=== PATIENT | female | born 1960 | race Caucasian/White ===

== ENCOUNTER 2023-03-21 14:48 | Emergency (ER) | payer MEDICAID ==
[~2023-03-21] VITALS: Ht 154.9 cm; Wt 75.7 kg
[2023-03-21 14:51] VITALS: BP 149/81
--- NOTE | 2023-03-21 14:53 | NUR ---
PT AMBULATED TO ER BED 6
--- NOTE | 2023-03-21 15:00 | NUR ---
63YO FEMALE PT BIB DAUGHTER C/O PRESSURED 4/10 CHEST PAIN XTODAY. STATES SUDDEN ONSET W/O RADIATION. REPORTS EPISODES OF SOB, LETHARGY AND GEN WEAK. +DYSURIA, URGENCY AND INCREASED FREQUENCY. DENIES N/V/D,FEVER CHILLS OR SOB AT THIS TIME. PT AAOX4, ON ENAMEL BUFFER HX: ASTHMA, HLD, HTN NKA
--- NOTE | 2023-03-21 15:02 | NUR ---
MD MELARA AT BEDSIDE FOR EVALUATION
[2023-03-21] MEDS ORDERED: NITROGLYCERIN 0.4 MG TAB SL ONE (15:15)
[2023-03-21] MEDS ORDERED: NACL 0.9% 1,000 ML IV ONE (15:15)
--- NOTE | 2023-03-21 15:39 | NUR ---
xray at bedside
[2023-03-21 15:42] LABS: BASOPHILS # (AUTO) 0.1 K/uL (0.00-0.22); BASOPHILS % (AUTO) 0.6 % (0.0-2.0); EOSINOPHILS % (AUTO) 0.4 % (0.0-4.0); HEMATOCRIT 35.5 % (36-48); HEMOGLOBIN 11.8 g/dL (12.0-16.0); LYMPHOCYTES # (AUTO) 1.9 K/uL (2.5-16.5); LYMPHOCYTES % (AUTO) 21.7 % (20.5-51.1); MEAN CORPUSCULAR HEMOGLOBIN 29 pg (27-31); MEAN CORPUSCULAR HGB CONC 33 g/dL (33-37); MEAN CORPUSCULAR VOLUME 87.2 fL (80-94); MONOCYTES # (AUTO) 0.6 K/uL (0.8-1.0); MONOCYTES % (AUTO) 7.4 % (1.7-9.3); NEUTROPHILS # (AUTO) 6.1 K/uL (1.8-7.7); NEUTROPHILS % (AUTO) 69.9 % (42.2-75.2); PLATELET COUNT (AUTO) 203 K/uL (140-450); RED BLOOD CELL COUNT(AUTO) 4.07 MIL/uL (4.20-5.40); WHITE BLOOD COUNT (AUTO) 8.8 K/uL (4.8-10.8)
[2023-03-21 15:57] LABS: APPEARANCE,URINE CLEAR (CLEAR); BILIRUBIN,URINE NEGATIVE (NEGATIVE); BLOOD, URINE 3+ (NEGATIVE); COLOR,URINE YELLOW (YELLOW); LEUKOCYTE ESTERASE ,URINE NEGATIVE (NEGATIVE); NITRITE, URINE POSITIVE (NEGATIVE); PH,URINE 5.5 (5.0-9.0); UGLUCOSE NEGATIVE (NEGATIVE)
--- NOTE | 2023-03-21 16:01 | NUR ---
PT W/ INCREASED PELVIC PAIN. ERMD MADE AWARE
[2023-03-21] MEDS ORDERED: KETOROLAC 30 MG/ML VIAL IVP ONE (16:05)
[2023-03-21 16:10] LABS: ALBUMIN 3.6 g/dL (3.4-5.0); ANION GAP 12.2 (8-16); ASPARTATE AMINOTRANSFERASE 24 U/L (15-37); CARBON DIOXIDE 27.6 mmol/L (21-32); CHLORIDE 100 mmol/L (98-107); CREATININE 1.2 mg/dL (0.6-1.3); GFR ARICAN-AMERICAN 58 mL/min (>90); GLUCOSE 172 mg/dL (74-106); POTASSIUM 3.8 mmol/L (3.5-5.1); SODIUM SERUM 136 mmol/L (136-145); TOTAL BILIRUBIN 0.4 mg/dL (0.0-1.0); UREA NITROGEN, BLOOD 31 mg/dL (7-18)
[2023-03-21 16:12] LABS: RBC,URINE 20-50 /HPF (0-5); TRICHOMONAS,URINE None Seen /HPF (None Seen); WBC,URINE 0-5 /HPF (0-5); YEAST,URINE None Seen /HPF (None Seen)
[2023-03-21] MEDS ORDERED: ACET-10509 PO (16:47)
[2023-03-21] MEDS ORDERED: TRAM50TA3 PO (16:47)
--- NOTE | 2023-03-21 16:55 | NUR ---
IV removed, catheter intact and site benign. Applied folded 4x4 gauze and tape to stop bleeding.
--- NOTE | 2023-03-21 16:56 | NUR ---
The patient's care was reviewed and supervised by RICCI العلي RN.
[2023-03-21 17:01] VITALS: BP 111/68
--- NOTE | 2023-03-21 17:01 | NUR ---
Patient discharged with v/s stable. Written and verbal after care instructions FOR NON SPECIFIC CHEST PAIN AND COLPOCLEISIS given and explained. Patient alert, oriented and verbalized understanding of instructions. Ambulatory with steady gait. All questions addressed prior to discharge. ID band removed. Patient advised to follow up with PMD. Rx of TYLENOL AND TRAMADOL given. Opportunity to ask questions provided and answered.
== END 2023-03-21 17:01 | disposition home or self-care (01) ==
LOC: MED 14:48
DX: R07.9 Chest pain, unspecified (principal); F41.9 Anxiety disorder, unspecified; Z79.899 Other long term (current) drug therapy
CPT/HCPCS: 36415; 71045; 80053; 81001; 84484; 85025; 85379; 87086; 93005; 96361; 96374; 99285; J1885; J7030; Q0092

== ENCOUNTER 2023-04-16 20:37 | Emergency (ER) | payer MEDICAID ==
[~2023-04-16] VITALS: Ht 157.5 cm; Wt 80.3 kg
[~2023-04-16 20:37] MED LIST: ACET-10509 PO; TRAM50TA3 PO
[2023-04-16 21:15] VITALS: BP 123/82
--- NOTE | 2023-04-16 21:18 | NUR ---
TO LOBBY A/W BED AMBULATORY
--- NOTE | 2023-04-17 03:08 | NUR ---
PT CALLED FROM INSIDE LOBBY AND OUTSIDE, NO RESPONSE
--- NOTE | 2023-04-17 03:13 | NUR ---
PT CALLED IN LOBBY AND OUTSIDE WITH NO ANSWER. PT LWBS
== END 2023-04-17 03:05 | disposition left against medical advice (07) ==
LOC: MED 20:37
DX: M54.9 Dorsalgia, unspecified (principal); R07.9 Chest pain, unspecified; Z53.21 Procedure and treatment not carried out due to patient leaving prior to being seen by health care provider
CPT/HCPCS: 93005; 99281

== ENCOUNTER 2023-04-20 01:10 | Emergency (ER) | payer MEDICAID ==
[~2023-04-20] VITALS: Ht 154.9 cm; Wt 77.6 kg
[2023-04-20 01:30] VITALS: BP 144/101
[2023-04-20] MEDS ORDERED: cefTRIAXone 1,000 MG in LIDOCAINE MPF 1% 2.1 ML IM ONE (02:25)
[2023-04-20] MEDS ORDERED: KETOROLAC 60 MG/2 ML VIAL IM ONE (02:25)
[2023-04-20] MEDS ORDERED: cefTRIAXone 1,000 MG VIAL ONE (02:29)
[2023-04-20] MEDS ORDERED: LIDOCAINE MPF 1% 5 ML ONE (02:30)
[2023-04-20 02:55] LABS: APPEARANCE,URINE CLEAR (CLEAR); BILIRUBIN,URINE NEGATIVE (NEGATIVE); BLOOD, URINE NEGATIVE (NEGATIVE); COLOR,URINE YELLOW (YELLOW); LEUKOCYTE ESTERASE ,URINE NEGATIVE (NEGATIVE); NITRITE, URINE NEGATIVE (NEGATIVE); UGLUCOSE TRACE (NEGATIVE)
[2023-04-20] MEDS ORDERED: NACL 0.9% 1,000 ML IV ONE (03:25)
--- NOTE | 2023-04-20 03:29 | NUR ---
PT TO BED #9
--- NOTE | 2023-04-20 03:35 | NUR ---
Pt c/o lower abd pain xcouple days; states she feels the pain in her ovaries. Denies any hematuria, dysuria, N/V. PMH: HTN A: NKDA Daughter at bedside.
[2023-04-20 03:41] LABS: BASOPHILS # (AUTO) 0.1 K/uL (0.00-0.22); BASOPHILS % (AUTO) 0.5 % (0.0-2.0); EOSINOPHILS % (AUTO) 0.4 % (0.0-4.0); HEMATOCRIT 34.7 % (36-48); HEMOGLOBIN 11.5 g/dL (12.0-16.0); LYMPHOCYTES # (AUTO) 2.2 K/uL (2.5-16.5); LYMPHOCYTES % (AUTO) 22.5 % (20.5-51.1); MEAN CORPUSCULAR HEMOGLOBIN 29 pg (27-31); MEAN CORPUSCULAR HGB CONC 33 g/dL (33-37); MEAN CORPUSCULAR VOLUME 87.2 fL (80-94); MONOCYTES # (AUTO) 0.9 K/uL (0.8-1.0); MONOCYTES % (AUTO) 9.2 % (1.7-9.3); NEUTROPHILS # (AUTO) 6.7 K/uL (1.8-7.7); NEUTROPHILS % (AUTO) 67.4 % (42.2-75.2); PLATELET COUNT (AUTO) 190 K/uL (140-450); RED BLOOD CELL COUNT(AUTO) 3.98 MIL/uL (4.20-5.40); RED CELL DISTRIBUTION WIDTH 13.9 % (11.6-13.7); WHITE BLOOD COUNT (AUTO) 9.9 K/uL (4.8-10.8)
[2023-04-20 03:57] LABS: ALBUMIN 3.8 g/dL (3.4-5.0); ANION GAP 10.7 (8-16); CARBON DIOXIDE 31.2 mmol/L (21-32); CREATININE 1.5 mg/dL (0.6-1.3); POTASSIUM 3.9 mmol/L (3.5-5.1); TOTAL BILIRUBIN 0.3 mg/dL (0.0-1.0)
--- NOTE | 2023-04-20 05:20 | NUR ---
Pt taken to CT for imaging.
[2023-04-20] MEDS ORDERED: ACET-8905 PO (08:41)
[2023-04-20] MEDS ORDERED: IBUP-2213 PO (08:41)
[2023-04-20 08:55] VITALS: BP 131/77
--- NOTE | 2023-04-20 08:55 | NUR ---
Patient discharged with v/s stable. Written and verbal after care instructions given and explained. Patient alert, oriented and verbalized understanding of instructions. Ambulatory with steady gait. All questions addressed prior to discharge. ID band removed. Patient advised to follow up with PMD. Rx of NORCO, IBUPROFEN given. Patient educated on indication of medication including possible reaction and side effects. Opportunity to ask questions provided and answered.
== END 2023-04-20 08:55 | disposition home or self-care (01) ==
LOC: MED 01:10
DX: R10.30 Lower abdominal pain, unspecified (principal); I10 Essential (primary) hypertension; Z79.899 Other long term (current) drug therapy; Z79.891 Long term (current) use of opiate analgesic
CPT/HCPCS: 36415; 74176; 80053; 81003; 83605; 85025; 87040; 96360; 96372; 99285; J0696; J1885; J2001; J7030

== ENCOUNTER 2024-04-06 14:44 | Emergency (ER) | payer MEDICAID ==
[~2024-04-06] VITALS: Ht 157.5 cm; Wt 78.5 kg
[~2024-04-06 14:44] MED LIST changes: +ACET-8905 PO; +IBUP-2213 PO
[2024-04-06 15:01] VITALS: BP 141/108; PULSE 113; RESP 19; TEMP 97.9; O2SAT 96
[2024-04-06] MEDS: KETOROLAC 30 MG/ML VIAL IM ONE (15:38)
[2024-04-06] MEDS: LORazepam 1 MG TAB PO ONE (15:38)
[2024-04-06] MEDS: LIDOCAINE 5% 1 EA PATCH TP ONE (16:01)
[2024-04-06 16:11] LABS: BASOPHILS # (AUTO) 0.1 K/uL (0.00-0.22); BASOPHILS % (AUTO) 1.1 % (0.0-2.0); EOSINOPHILS # (AUTO) 0.1 K/uL (0-0.4); HEMATOCRIT 35.6 % (36-48); HEMOGLOBIN 11.8 g/dL (12.0-16.0); LYMPHOCYTES # (AUTO) 2.8 K/uL (2.5-16.5); LYMPHOCYTES % (AUTO) 38.9 % (20.5-51.1); MEAN CORPUSCULAR HEMOGLOBIN 28 pg (27-31); MEAN CORPUSCULAR HGB CONC 33 g/dL (33-37); MEAN CORPUSCULAR VOLUME 85.5 fL (80-94); MONOCYTES # (AUTO) 0.5 K/uL (0.8-1.0); MONOCYTES % (AUTO) 6.9 % (1.7-9.3); NEUTROPHILS # (AUTO) 3.7 K/uL (1.8-7.7); NEUTROPHILS % (AUTO) 52.1 % (42.2-75.2); PLATELET COUNT (AUTO) 204 K/uL (140-450); RED BLOOD CELL COUNT(AUTO) 4.16 MIL/uL (4.20-5.40); RED CELL DISTRIBUTION WIDTH 14.1 % (11.6-13.7); WHITE BLOOD COUNT (AUTO) 7.2 K/uL (4.8-10.8)
[2024-04-06 16:28] LABS: ANION GAP 10.2 (8-16); CALCIUM 9.3 mg/dL (8.5-10.1); CARBON DIOXIDE 30.7 mmol/L (21-32); CREATININE 1.3 mg/dL (0.6-1.3); POTASSIUM 3.9 mmol/L (3.5-5.1)
[2024-04-06] MEDS ORDERED: ATI.5 PO (16:50)
[2024-04-06] MEDS: ALBUTEROL 0.083% 2.5 MG/3 ML NEBU INH ONE (17:12)
[2024-04-06 17:13] VITALS: PULSE 67; RESP 14; O2SAT 93
[2024-04-06 17:20] VITALS: BP 141/108; PULSE 67; RESP 14; TEMP 97.9; O2SAT 93
== END 2024-04-06 17:20 | disposition home or self-care (01) ==
LOC: MED 14:44
DX: R07.89 Other chest pain (principal); F41.9 Anxiety disorder, unspecified; K21.9 Gastro-esophageal reflux disease without esophagitis; E11.9 Type 2 diabetes mellitus without complications; I10 Essential (primary) hypertension; Z79.4 Long term (current) use of insulin; Z79.899 Other long term (current) drug therapy
CPT/HCPCS: 36415; 71045; 80048; 83880; 84484; 85025; 85379; 93005; 94640; 96372; 99285; J1885; J7613

== ENCOUNTER 2024-09-02 11:07 | Emergency (ER) | payer MEDICAID ==
[~2024-09-02] VITALS: Ht 162.6 cm; Wt 78.0 kg
[~2024-09-02 11:07] MED LIST changes: -ACET-10509 PO; +ACET500T99 PO; +ATI.5 PO
[2024-09-02 11:10] VITALS: BP 157/87; PULSE 95; RESP 16; TEMP 98.1; O2SAT 97
[2024-09-02 12:53] VITALS: BP 155/81; PULSE 90; RESP 16; TEMP 98.1; O2SAT 97
[2024-09-02] MEDS ORDERED: LIDO100S PO (13:34)
[2024-09-02] MEDS ORDERED: ACET-8905 PO (13:34)
[2024-09-02] MEDS ORDERED: IBUP-2213 PO (13:34)
== END 2024-09-02 13:26 | disposition home or self-care (01) ==
LOC: MED 11:07
DX: K05.10 Chronic gingivitis, plaque induced (principal); E11.9 Type 2 diabetes mellitus without complications; K21.9 Gastro-esophageal reflux disease without esophagitis; I10 Essential (primary) hypertension; Z90.710 Acquired absence of both cervix and uterus; Z98.890 Other specified postprocedural states; Z79.899 Other long term (current) drug therapy
CPT/HCPCS: 82948; 99283